=== PATIENT | female | born 1945 | race Caucasian/White ===

== ENCOUNTER 2017-04-21 19:22 | Inpatient (IN) | payer MEDICARE ==
[~2017-04-21] VITALS: Ht 160 cm; Wt 72.4 kg
[2017-04-21] MEDS ORDERED: SODIUM CHLORIDE 0.9% 1,000 ML IV ONE ×2 (20:38→21:25)
[2017-04-21 21:12] LABS: HEMATOCRIT. 38.5 % (36.0-48.0); HEMOGLOBIN. 11.4 g/dL (12.0-16.0); MEAN CORPUSCULAR HEMOGLOBIN 29.2 pg (28.0-32.0); MEAN CORPUSCULAR VOLUME 98.6 fL (81.0-99.0); MEAN PLATELET VOLUME 9.1 fl (7.4-10.4); PLATELET 299 x1000/uL (130-400); RED BLOOD CELL COUNT 3.91 mill/uL (4.2-5.4); RED CELL DISTRIBUTION WIDTH 15.1 % (11.6-14.6)
[2017-04-21 21:21] LABS: AMYLASE 18 IU/L (25-115); CHLORIDE 91 mEq/L (98-107)
[2017-04-21 21:22] LABS: CARBON DIOXIDE 6 mEq/L (21-32)
[2017-04-21 21:23] LABS: TROPONIN I < 0.02 ng/mL (0.00-0.04)
[2017-04-21] MEDS ORDERED: SODIUM CHLORIDE 0.9% 1,000 ML IV STA (21:24)
[2017-04-21] MEDS ORDERED: INSULIN REGULAR (DRIP) 100 UNITS in SODIUM CHLORIDE 0.9% 99 ML IV ONE (21:24)
[2017-04-21 21:35] LABS: CLARITY URINE CLEAR (CLEAR); COLOR URINE YELLOW (YELLOW); GLUCOSE URINE 3+ (NEGATIVE); KETONES URINE 4+ (NEGATIVE); LEUKOCYTE ESTERASE URINE NEGATIVE (NEGATIVE); NITRITE URINE NEGATIVE (NEGATIVE); OCCULT BLOOD URINE TRACE (NEGATIVE); PROTEIN URINE TRACE (NEGATIVE); SPECIFIC GRAVITY URINE 1.025 (1.005-1.030); UROBILINOGEN URINE 0.2 E.U./dL (0.2-1.0)
[2017-04-21 21:42] LABS: BG CARBOXYHEMOGLOBIN 0.3 % (0.5-1.5); BG DEOXYHEMOGLOBIN 1.8 % (0.0-5.0); BG FRACTION INSPIRED OXYGEN 21; BG HCO3 ACT 3.3 mmol/L (22.0-26.0); BG METHEMOGLOBIN 0.5 % (0.0-1.5); BG OXYGEN SATURATION 98.2 % (92.0-98.5); BG OXYHEMOGLOBIN 97.4 % (94.0-97.0); BG PH 7.101 (7.350-7.450); BG PO2 141.7 mmHg (75.0-100.0); BG SAMPLE SITE LEFT BRACHIAL; BG TOTAL HEMOGLOBIN 12.7 g/dL (12.0-18.0); BG VENT MODE ROOM AIR
[2017-04-21 21:46] LABS: PLATELET ESTIMATE NORMAL
[2017-04-21 21:48] LABS: BETA HYDROXYBUTYRATE 12.6 mMol/L (0.0-0.3)
[2017-04-21 23:09] LABS: CHLORIDE 91 mEq/L (98-107)
[2017-04-21] MEDS ORDERED: MORPHINE SULFATE 2 MG/ML CPJ (NOT FOR IM USE) IV NR (23:15)
[2017-04-21 23:19] LABS: CARBON DIOXIDE 6 mEq/L (21-32)
[2017-04-21] MEDS ORDERED: ONDANSETRON HCL 4MG/2ML VIAL IV PRN (23:30)
[2017-04-21] MEDS ORDERED: CLONIDINE 0.1MG TABLET PO PRN (23:30)
[2017-04-21] MEDS ORDERED: LORAZEPAM 2MG/ML CPJ IV PRN (23:30)
[2017-04-21] MEDS ORDERED: MAGNESIUM/ALUMINUM HYDROXIDE/SIMETHICONE 30ML UDC PO PRN (23:30)
[2017-04-21] MEDS ORDERED: ACETAMINOPHEN 325MG TABLET PO PRN (23:30)
[2017-04-21] MEDS ORDERED: IPRATROPIUM/ALBUTEROL 0.5-3(2.5)MG/3ML NEB INH PRN (23:30)
[2017-04-21] MEDS ORDERED: HYDROMORPHONE HCL/PF 2MG/ML CPJ IV PRN (23:30)
[2017-04-21] MEDS ORDERED: GUAIFENESIN 200MG/10ML SUGAR FREE UDC PO PRN (23:30)
[2017-04-21] MEDS ORDERED: NA PHOS,M-B/NA PHOS,DI-BA ENEMA 118ML PR PRN (23:30)
[2017-04-22] VITALS (28 sets, daily range): BP systolic 81–134; BP diastolic 42–89
[2017-04-22 00:03] LABS: CHLORIDE 93 mEq/L (98-107)
[2017-04-22 00:25] LABS: CARBON DIOXIDE 5 mEq/L (21-32)
[2017-04-22] MEDS ORDERED: ONDANSETRON HCL 4MG/2ML VIAL IV ONE (00:30)
[2017-04-22] MEDS ORDERED: MORPHINE SULFATE 4 MG/ML CPJ (NOT FOR IM USE) IV ONE (00:30)
[2017-04-22 00:49] LABS: PHOSPHORUS 4.7 mg/dL (2.5-4.9)
[2017-04-22] MEDS: SODIUM BICARBONATE 8.4% 1 MEQ/ML 50ML SYR IV NR ×2 (01:23→01:26)
[2017-04-22 02:28] LABS: CHLORIDE 98 mEq/L (98-107); PHOSPHORUS 2.7 mg/dL (2.5-4.9)
[2017-04-22 02:37] LABS: CARBON DIOXIDE 7 mEq/L (21-32)
[2017-04-22] MEDS ORDERED: DEXTROSE 50% WATER 50ML SYRINGE IV PRN (04:30)
[2017-04-22] MEDS ORDERED: SODIUM CHLORIDE 0.45% 1,000 ML IV SCH (05:00)
[2017-04-22] MEDS: BLOOD SUGAR DIAGNOSTIC STRIP TEST SCH ×22 (05:59→23:32)
[2017-04-22] MEDS: INSULIN REGULAR (DRIP) 100 UNITS in SODIUM CHLORIDE 0.9% 99 ML IV SCH (06:36)
[2017-04-22 06:45] LABS: HEMATOCRIT. 30.4 % (36.0-48.0); HEMOGLOBIN. 10.2 g/dL (12.0-16.0); MEAN CORPUSCULAR HEMOGLOBIN 29.6 pg (28.0-32.0); MEAN CORPUSCULAR VOLUME 88.1 fL (81.0-99.0); MEAN PLATELET VOLUME 8.6 fl (7.4-10.4); PLATELET 235 x1000/uL (130-400); RED BLOOD CELL COUNT 3.45 mill/uL (4.2-5.4); RED CELL DISTRIBUTION WIDTH 13.9 % (11.6-14.6)
[2017-04-22 07:41] LABS: CHLORIDE 106 mEq/L (98-107)
[2017-04-22 08:27] LABS: CARBON DIOXIDE 11 mEq/L (21-32); HDL CHOLESTEROL 41 mg/dL (40-59); LDL CHOLESTEROL 77 mg/dL (5-100); TROPONIN I < 0.02 ng/mL (0.00-0.04)
[2017-04-22 08:34] LABS: PLATELET ESTIMATE NORMAL
[2017-04-22] MEDS: INSULIN LISPRO (HIGH DOSE) 100 UNITS/ML SUBCUT SCH ×4 (09:28→21:00)
[2017-04-22] MEDS ORDERED: SODIUM BICARBONATE 5MEQ SYR 50 MEQ in DEXT 5%/0.45% NACL 1000ML 1,000 ML IV SCH (09:30)
[2017-04-22] MEDS: ASPIRIN 81MG EC TABLET PO SCH (09:35)
[2017-04-22] MEDS: ENOXAPARIN 40MG/0.4ML SYR SUBCUT SCH (09:35)
[2017-04-22] MEDS ORDERED: [UNRECOGNIZED DRUG - OTHER] IV SCH (10:00)
[2017-04-22] MEDS ORDERED: SODIUM BICARBONATE IV SCH (10:00)
[2017-04-22] MEDS ORDERED: POTASSIUM CHLORIDE IV SCH (10:00)
[2017-04-22] MEDS: HYDROCODONE/ACETAMINOPHEN 5/325MG TABLET PO PRN (13:37)
[2017-04-22] MEDS ORDERED: DICY20TA11 PO (14:12)
[2017-04-22] MEDS ORDERED: ASPI-1159 PO (14:12)
[2017-04-22] MEDS ORDERED: [UNRECOGNIZED DRUG - OTHER] (14:12)
[2017-04-22] MEDS ORDERED: METR-112 PO (14:12)
[2017-04-22] MEDS ORDERED: CIPR-213 PO (14:12)
[2017-04-22] MEDS ORDERED: HUM10VIA8 SQ (14:13)
[2017-04-22] MEDS ORDERED: KCL 20MEQ/100ML PREMIX 100 ML IV NR (17:00)
[2017-04-22 21:03] LABS: CARBON DIOXIDE 11 mEq/L (21-32); CHLORIDE 106 mEq/L (98-107)
[2017-04-22 21:05] LABS: BG BASE EXCESS -9.6 mmol/L (-2.0-2.0); BG CARBOXYHEMOGLOBIN 0.3 % (0.5-1.5); BG FRACTION INSPIRED OXYGEN 21; BG HCO3 ACT 13.9 mmol/L (22.0-26.0); BG METHEMOGLOBIN 0.2 % (0.0-1.5); BG OXYHEMOGLOBIN 96.5 % (94.0-97.0); BG PCO2 23.8 mmHg (35.0-45.0); BG PH 7.383 (7.350-7.450); BG PO2 92.3 mmHg (75.0-100.0); BG SAMPLE SITE RIGHT BRACHIAL; BG TOTAL HEMOGLOBIN 10.7 g/dL (12.0-18.0); BG VENT MODE ROOM AIR
[2017-04-22] MEDS: POTASSIUM CHLORIDE IV SCH (22:01)
[2017-04-22] MEDS: SODIUM BICARBONATE IV SCH (22:01)
[2017-04-22] MEDS: [UNRECOGNIZED DRUG - OTHER] IV SCH (22:01)
[2017-04-23] VITALS (45 sets, daily range): BP systolic 75–164; BP diastolic 23–99
[2017-04-23] MEDS: BLOOD SUGAR DIAGNOSTIC STRIP TEST SCH ×16 (00:02→20:42)
[2017-04-23] MEDS: INSULIN REGULAR (DRIP) 100 UNITS in SODIUM CHLORIDE 0.9% 99 ML IV SCH ×2 (00:05→09:04)
[2017-04-23 05:20] LABS: BASOPHILS % 0.2 % (0.0-2.0); EOSINOPHILS % 0.2 % (0.0-5.0); HEMATOCRIT. 30.5 % (36.0-48.0); HEMOGLOBIN. 10.4 g/dL (12.0-16.0); LYMPHOCYTES % 8.5 % (20.0-50.0); MEAN CORPUSCULAR HEMOGLOBIN 29.2 pg (28.0-32.0); MEAN CORPUSCULAR VOLUME 85.6 fL (81.0-99.0); MEAN PLATELET VOLUME 8.3 fl (7.4-10.4); MONOCYTES % 10.6 % (2.0-8.0); NEUTROPHILS % 80.5 % (40.0-76.0); PLATELET 241 x1000/uL (130-400); RED BLOOD CELL COUNT 3.56 mill/uL (4.2-5.4)
[2017-04-23] MEDS: HYDROCODONE/ACETAMINOPHEN 5/325MG TABLET PO PRN ×3 (05:26→20:42)
[2017-04-23 06:53] LABS: CHLORIDE 108 mEq/L (98-107)
[2017-04-23 07:25] LABS: CARBON DIOXIDE 20 mEq/L (21-32)
[2017-04-23 07:56] LABS: PHOSPHORUS 0.6 mg/dL (2.5-4.9)
[2017-04-23] MEDS: ASPIRIN 81MG EC TABLET PO SCH (09:01)
[2017-04-23] MEDS: ENOXAPARIN 40MG/0.4ML SYR SUBCUT SCH (09:02)
[2017-04-23] MEDS ORDERED: MAGNESIUM 2 G PREMIX 50 ML IV SCH (10:00)
[2017-04-23] MEDS ORDERED: SODIUM PHOS,M-BASIC-D-BASIC 15 MM in DEXT 5% WATER 245 ML IV SCH (10:00)
[2017-04-23] MEDS: POTASSIUM CHLORIDE IV SCH (11:30)
[2017-04-23] MEDS: SODIUM BICARBONATE IV SCH (11:30)
[2017-04-23] MEDS: [UNRECOGNIZED DRUG - OTHER] IV SCH (11:30)
[2017-04-23] MEDS ORDERED: IOHEXOL-300 100 ML BOTTLE ONE (12:15)
[2017-04-23] MEDS ORDERED: SODIUM CHLORIDE 0.9% 10ML VIAL ONE (12:15)
[2017-04-23] MEDS ORDERED: POTASSIUM ACETATE IV SCH (12:30)
[2017-04-23] MEDS ORDERED: SODIUM CHLORIDE IV SCH (12:30)
[2017-04-23] MEDS: INSULIN LISPRO 100 UNITS/ML SUBCUT SCH ×3 (13:07→20:48)
[2017-04-23] MEDS ORDERED: INSULIN DETEMIR UD 100 UNITS/ML SYR SUBCUT SCH (14:00)
[2017-04-23] MEDS: POTASSIUM CHLORIDE INJ 10 MEQ in SODIUM CHLORIDE 0.45% 1,000 ML IV SCH (14:13)
[2017-04-24] VITALS (24 sets, daily range): BP systolic 90–132; BP diastolic 43–65
[2017-04-24] MEDS: POTASSIUM CHLORIDE INJ 10 MEQ in SODIUM CHLORIDE 0.45% 1,000 ML IV SCH (00:32)
[2017-04-24] MEDS: HYDROCODONE/ACETAMINOPHEN 5/325MG TABLET PO PRN (03:24)
[2017-04-24 05:42] LABS: HEMATOCRIT. 29.8 % (36.0-48.0); HEMOGLOBIN. 10.2 g/dL (12.0-16.0); MEAN CORPUSCULAR HEMOGLOBIN 29.3 pg (28.0-32.0); MEAN CORPUSCULAR VOLUME 85.8 fL (81.0-99.0); PLATELET 200 x1000/uL (130-400); RED BLOOD CELL COUNT 3.47 mill/uL (4.2-5.4); RED CELL DISTRIBUTION WIDTH 14.1 % (11.6-14.6)
[2017-04-24 06:03] LABS: CARBON DIOXIDE 23 mEq/L (21-32); CHLORIDE 105 mEq/L (98-107); PHOSPHORUS 1.5 mg/dL (2.5-4.9)
[2017-04-24] MEDS: BLOOD SUGAR DIAGNOSTIC STRIP TEST SCH ×4 (07:50→20:54)
[2017-04-24] MEDS: ENOXAPARIN 40MG/0.4ML SYR SUBCUT SCH (08:15)
[2017-04-24] MEDS: ASPIRIN 81MG EC TABLET PO SCH (08:16)
[2017-04-24] MEDS: DOCUSATE SODIUM 100MG CAPSULE PO PRN (08:16)
[2017-04-24 08:38] LABS: PLATELET ESTIMATE NORMAL
[2017-04-24] MEDS ORDERED: MAGNESIUM 2 G PREMIX 50 ML IV NR (09:00)
[2017-04-24] MEDS: INSULIN DETEMIR UD 100 UNITS/ML SYR SUBCUT SCH (09:35)
[2017-04-24] MEDS: INSULIN LISPRO 100 UNITS/ML SUBCUT SCH ×4 (09:36→20:53)
[2017-04-24] MEDS ORDERED: POTASSIUM PHOS,M-BASIC-D-BASIC 20 MMOL in DEXT 5% WATER 243.3333 ML IV NR (10:00)
[2017-04-24] MEDS: DEXT 5%/0.45% NACL KCL 10MEQ/L 1,000 ML IV SCH (10:24)
[2017-04-24] MEDS: MORPHINE SULFATE 2 MG/ML CPJ (NOT FOR IM USE) IV PRN ×3 (12:34→20:49)
[2017-04-25] VITALS (15 sets, daily range): BP systolic 102–148; BP diastolic 48–78
[2017-04-25] MEDS: MORPHINE SULFATE 2 MG/ML CPJ (NOT FOR IM USE) IV PRN (01:01)
[2017-04-25] MEDS: DEXT 5%/0.45% NACL KCL 10MEQ/L 1,000 ML IV SCH ×2 (02:23→12:43)
[2017-04-25] MEDS: HYDROCODONE/ACETAMINOPHEN 5/325MG TABLET PO PRN ×3 (04:43→21:19)
[2017-04-25] MEDS: BLOOD SUGAR DIAGNOSTIC STRIP TEST SCH ×4 (06:41→21:19)
[2017-04-25 06:56] LABS: BASOPHILS % 0.2 % (0.0-2.0); EOSINOPHILS % 0.9 % (0.0-5.0); HEMATOCRIT. 28.7 % (36.0-48.0); HEMOGLOBIN. 9.8 g/dL (12.0-16.0); MEAN CORPUSCULAR HEMOGLOBIN 29.3 pg (28.0-32.0); MEAN CORPUSCULAR VOLUME 86.2 fL (81.0-99.0); MEAN PLATELET VOLUME 9.5 fl (7.4-10.4); MONOCYTES % 9.3 % (2.0-8.0); NEUTROPHILS % 79.6 % (40.0-76.0); PLATELET 143 x1000/uL (130-400); RED BLOOD CELL COUNT 3.33 mill/uL (4.2-5.4); RED CELL DISTRIBUTION WIDTH 14.3 % (11.6-14.6)
[2017-04-25 06:57] LABS: CARBON DIOXIDE 23 mEq/L (21-32); CHLORIDE 105 mEq/L (98-107)
[2017-04-25] MEDS: ENOXAPARIN 40MG/0.4ML SYR SUBCUT SCH (08:12)
[2017-04-25] MEDS: INSULIN LISPRO 100 UNITS/ML SUBCUT SCH ×4 (08:13→21:23)
[2017-04-25] MEDS ORDERED: POTASSIUM PHOS,M-BASIC-D-BASIC 15 MMOL in DEXT 5% WATER 245 ML IV SCH (10:00)
[2017-04-25] MEDS: INSULIN DETEMIR UD 100 UNITS/ML SYR SUBCUT SCH (10:07)
[2017-04-26] VITALS (11 sets, daily range): BP systolic 98–145; BP diastolic 48–76
[2017-04-26] MEDS: DEXT 5%/0.45% NACL KCL 10MEQ/L 1,000 ML IV SCH (02:49)
[2017-04-26] MEDS: HYDROCODONE/ACETAMINOPHEN 5/325MG TABLET PO PRN ×2 (04:18→11:50)
[2017-04-26] MEDS: BLOOD SUGAR DIAGNOSTIC STRIP TEST SCH ×2 (05:39→11:55)
[2017-04-26] MEDS: DOCUSATE SODIUM 100MG CAPSULE PO PRN (05:43)
[2017-04-26 06:49] LABS: BASOPHILS % 0.5 % (0.0-2.0); HEMATOCRIT. 28.1 % (36.0-48.0); HEMOGLOBIN. 9.6 g/dL (12.0-16.0); LYMPHOCYTES % 10.6 % (20.0-50.0); MEAN CORPUSCULAR HEMOGLOBIN 29.6 pg (28.0-32.0); MEAN CORPUSCULAR VOLUME 86.8 fL (81.0-99.0); MEAN PLATELET VOLUME 9.1 fl (7.4-10.4); MONOCYTES % 8.3 % (2.0-8.0); NEUTROPHILS % 78.6 % (40.0-76.0); PLATELET 181 x1000/uL (130-400); RED BLOOD CELL COUNT 3.24 mill/uL (4.2-5.4); RED CELL DISTRIBUTION WIDTH 14.6 % (11.6-14.6)
[2017-04-26 07:15] LABS: CARBON DIOXIDE 22 mEq/L (21-32); CHLORIDE 108 mEq/L (98-107); PHOSPHORUS 2.6 mg/dL (2.5-4.9)
[2017-04-26] MEDS ORDERED: POTASSIUM CHLORIDE 20MEQ TABLET SR PO NR (07:45)
[2017-04-26] MEDS: ENOXAPARIN 40MG/0.4ML SYR SUBCUT SCH (08:37)
[2017-04-26] MEDS: INSULIN LISPRO 100 UNITS/ML SUBCUT SCH ×2 (08:41→12:51)
[2017-04-26] MEDS: MAGNESIUM 2 G PREMIX 50 ML IV NR ×2 (10:10→10:16)
[2017-04-26] MEDS: INSULIN DETEMIR UD 100 UNITS/ML SYR SUBCUT SCH (10:24)
== END 2017-04-26 13:53 | disposition home or self-care (01) | DRG 637 ==
LOC: ER 22:42 → CVICU 22:48 → EDBEDREQ 22:54 → ENRESERV 04-22 00:07 → 3WST 04-24 16:47
PROVIDERS: ADMIT Internal Medicine; ATTEND Internal Medicine
DX: E13.10 Other specified diabetes mellitus with ketoacidosis without coma (principal); G93.41 Metabolic encephalopathy; N17.0 Acute kidney failure with tubular necrosis; K85.90 Acute pancreatitis without necrosis or infection, unspecified; E46 Unspecified protein-calorie malnutrition; C25.9 Malignant neoplasm of pancreas, unspecified; R65.10 Systemic inflammatory response syndrome (SIRS) of non-infectious origin without acute organ dysfunction; E87.0 Hyperosmolality and hypernatremia; I31.3 Pericardial effusion (noninflammatory); D63.0 Anemia in neoplastic disease; E78.00 Pure hypercholesterolemia, unspecified; E78.5 Hyperlipidemia, unspecified; E83.39 Other disorders of phosphorus metabolism; E83.42 Hypomagnesemia; E86.0 Dehydration; E87.5 Hyperkalemia; E87.6 Hypokalemia; I11.0 Hypertensive heart disease with heart failure; D63.8 Anemia in other chronic diseases classified elsewhere; I25.10 Atherosclerotic heart disease of native coronary artery without angina pectoris; I50.9 Heart failure, unspecified; J44.9 Chronic obstructive pulmonary disease, unspecified; Z79.82 Long term (current) use of aspirin; Z79.4 Long term (current) use of insulin; Z68.28 Body mass index [BMI] 28.0-28.9, adult
CPT/HCPCS: 36415; 36600; 51702; 71010; 74176; 74177; 80048; 80053; 80061; 80076; 81001; 82010; 82150; 82375; 82378; 82805; 82962; 83690; 83735; 84100; 84439; 84443; 84484; 85025; 86301; 93005; 96361; 96365; 96375; 97162; 97535; 99291; A4216; J1170; J1650; J1815; J2270; J2405; J3475; J3480; J3490; J7030; J7050; J7060; Q9967; A4315